=== PATIENT | male | born 1955 | race Caucasian/White ===

== ENCOUNTER 2023-08-29 13:20 | Emergency (ER) | payer OTHER, SELFPAY ==
[2023-08-29 13:56] VITALS: BP 111/76
[2023-08-29 14:36] LABS: % Basophils 0.4 % (0-2); % Eosinophils 1.1 % (0-6); % Immature Granulocytes 0.7 % (0-0.5); % Lymphocytes 8.4 % (20.5-51.1); % Monocytes 9.9 % (1.7-9.3); % Neutrophils 79.5 % (42.2-75.2); Absolute Eosinophils 0.1 10^3/uL (0-0.7); Absolute Immature Granulocytes 0.1 10^3/uL (0-0.05); Absolute Lymphocytes 0.7 10^3/uL (1.2-3.4); Absolute Monocytes 0.8 10^3/uL (0.1-0.6); Absolute Neutrophils 6.4 10^3/uL (1.4-6.5); Hematocrit 45.9 % (39.0-52.0); Hemoglobin 16.4 g/dL (13.0-18.0); Mean Corp Hgb Conc. 35.7 g/dL (33.0-37.0); Mean Corpuscular Hgb 32.5 pg (27.0-31.0); Mean Corpuscular Volume 90.9 fL (80.0-94.0); Mean Platelet Volume 10.4 fL (7.4-10.4); Nucleated Red Blood Cells % 0 % (-); Platelet Count 139 10^3/uL (130-400); Red Blood Cell Count 5.05 10^6/uL (4.70-6.10); Red Cell Dist. Width 12.8 % (11.5-14.5); White Blood Cell Count 8.1 10^3/uL (4.8-10.8)
[2023-08-29 14:48] LABS: Lactic Acid 0.9 mmol/L (0.7-2.0)
[2023-08-29 15:00] LABS: ALT (SGPT) 53 U/L (0-50); AST (SGOT) 36 U/L (17-59); Albumin 4.5 g/dl (3.5-5.0); Alkaline Phosphatase 68 U/L (38-126); Blood Urea Nitrogen 18 mg/dl (9-20); Calcium 8.7 mg/dl (8.4-10.2); Carbon Dioxide 21 mmol/L (22-30); Chloride 105 mmol/L (98-107); Glucose 106 mg/dl (70-99); Potassium 4.1 mmol/L (3.5-5.1); Sodium 134 mmol/L (135-145); Total Bilirubin 1.1 mg/dl (0.2-1.3); eGFR > 60.00
[2023-08-29 15:06] LABS: COVID-19 Antigen Negative (Negative)
[2023-08-29 18:39] LABS: Urine Albumin Negative (Neg - Trace); Urine Bilirubin 1+ (Negative); Urine Character Clear (Clear); Urine Color Yellow; Urine Glucose Negative (Negative); Urine Ketone Negative (Negative); Urine Leukocyte Negative (Negative); Urine Nitrite Negative (Negative); Urine Occult Blood Negative (Negative); Urine Urobilinogen Negative (Neg - 1+)
--- NOTE | 2023-08-29 20:28 | ED.GENMED ---
History of Present Illness
General
Chief Complaint: Cold/Flu/URI Symptoms
Source: patient and spouse
Exam Limitations: none
Time Seen by Provider: 08/29/23 16:45
Nursing documentation reviewed up to this point in time: agreed with
Travel History
Have you had any contact with someone who has COVID-19?: No
Do you have any symptoms of coronavirus? Fever > 100 degrees, chills, cough, shortness of breath, sore throat, loss of taste or smell, muscle aches, or headache?: No
History of Present Illness
History of Present Illness:
68-year-old male presents to the emergency room for evaluation of fever/chills and diarrhea. Onset of symptoms overnight last night roughly around midnight and have been consistent through the day. He reports multiple episodes of watery diarrhea
nonbloody. He says that he was having some fevers with a Tmax of 101.6 �F last night. Also having some chills. He apparently saw a telehealth doctor who recommended he come to the emergency room to be assessed. He has not had any nausea or
vomiting. Denies any abdominal pain. Denies any respiratory symptoms. No other complaints.
Past History
Past History
ED Past Medical History: Arrthythmia and HTN
ED Past Surgical History: Appendectomy
Social History
Living: with family
Employment: Employed
Review of Systems
Review of Systems
All Other Systems: ROS reviewed and negative except as documented in HPI and ROS
Constitutional: Reports fever, fatigue and chills
EENT: Denies sore throat or runny nose
Respiratory: Denies cough or trouble breathing
Cardiac: Denies chest pain or palpitations
ABD/GI: Reports diarrhea; Denies abdominal pain, nausea, vomiting or bloody stools
: Denies frequency, flank pain or dark urine
Musculoskeletal: Denies neck pain or back pain
Neurological: Denies headache, weakness or numbness
Phy Exam
Physical Exam
Physical Exam:
General: Awake, alert, oriented x3; no acute distress
Head: Normocephalic, atraumatic
Eyes: Conjunctiva normal, sclera anicteric
Throat: Airway intact, handling secretions, moist mucous membrane
Neck: Trachea midline
Lungs: Clear to auscultation bilaterally, no wheezing, rales, rhonchi
Heart: Regular rate and rhythm, no murmurs, gallops, or rubs
Abd: Soft, non distended, nontender
Neuro: No gross deficits
Skin: no rash
Extremities: No edema in extremities, warm and well-perfused
Scores
Heart Failure Risk
Heart Failure Risk Score: Not Applicable
Heart Score for Chest Pain Patients
STEMI patient?: Not applicable
Withdrawal Assessment of Alcohol
Withdrawal Assessment Completed?: Not applicable
Course
Orders/Labs/Results
Orders:
Orders
08/29/23 14:18
Complete Blood Count/With Diff Urgent
Comprehensive Metabolic Panel Urgent
Blood Culture Urgent
[facility] Source: Blood/Venous
Specimen Description:
Influenza A+B Rapid Molecular Urgent
[facility] Source: Nasal Swab
Specimen Description:
08/29/23 14:19
COVID-19 Antigen Urgent
Source: Nasal Swab
Lactic Acid Urgent
08/29/23 16:01
CR Chest - 2 Views Urgent
Comment:
Reason For Exam: fever, chills
08/29/23 18:20
Urinalysis Reflex To Culture Urgent
Date Specimen was Collected: 08/29/23
Time Specimen was Collected: 18:17
Abnormal Lab Results
08/29/23 08/29/23
14:18 18:20
MCH 32.5 H pg
(27.0-31.0)
Abs Immat Gran (auto) 0.1 H 10^3/uL
(0-0.05)
Absolute Lymphs (auto) 0.7 L 10^3/uL
(1.2-3.4)
Absolute Monos (auto) 0.8 H 10^3/uL
(0.1-0.6)
Immature Gran % 0.7 H %
(0-0.5)
Neutrophils % 79.5 H %
(42.2-75.2)
Lymphocytes % 8.4 L %
(20.5-51.1)
Monocytes % 9.9 H %
(1.7-9.3)
Sodium 134 L mmol/L
(135-145)
Carbon Dioxide 21 L mmol/L
(22-30)
Glucose 106 H mg/dl
(70-99)
ALT 53 H U/L
(0-50)
Urine Bilirubin 1+ A
(Negative)
08/29/23 14:18
08/29/23 14:18
Vital Signs
Initial and Last Documented VS:
Initial Vital Signs
Temp Pulse Resp BP Pulse Ox
37.1 C 63 18 111/76 98
08/29/23 13:56 08/29/23 13:56 08/29/23 13:56 08/29/23 13:56 08/29/23 13:56
Last Documented Vital Signs
Temp Pulse Resp BP Pulse Ox
37.1 C 63 18 111/76 98
08/29/23 13:56 08/29/23 13:56 08/29/23 13:56 08/29/23 13:56 08/29/23 13:56
MDM/Problems Addressed
Differential Diagnosis Includes:
Gastroenteritis, colitis, viral syndrome/influenza
MDM/Problems Addressed:
68-year-old male presents for evaluation of diarrhea and fever starting last night. Vital signs normal here he took Tylenol prior to arrival. Physical exam as above. Labs sent off in triage including a CBC which showed no significant
abnormalities, CMP which showed marginal nongap metabolic acidosis like related to GI losses. Urinalysis showed no signs of infection, chest x-ray showed no pneumonia. Viral swabs were negative. Suspect likely norovirus or some other GI bug. He
appears quite well, no abdominal pain or tenderness no indication for emergent abdominal imaging at this point in time. Furthermore with nonbloody stools for 12 hours no clear indication for antibiotics. I think he is a reasonable candidate for
discharge with supportive care can follow-up as an outpatient with his primary doctor. He feels very comfortable with this plan. Advised him to drink plenty of fluids including Gatorade or Pedialyte, Pepto-Bismol as needed. Spoke about return
precautions, all questions answered.
*Pulse Oximetry
Patient hypoxic: no
*Critical Care Note
Total Time (30-74mins, 75-104mins- exclusive of procedures): Not Applicable
Data Reviewed
Source: patient and spouse
Prescriptions/Medications Considered But Not Given:
Considered treating with antibiotics such as ciprofloxacin
Further Testing Considered But Not Given:
Considered CT of the abdomen and pelvis
ED Attending Note
-
Portions of this chart may have been created with voice recognition software.� Occasional wrong word or��sound alike� substitutions may have occurred due to the inherent limitations of voice recognition software.
Discharge Plan
Departure
Patient Disposition: Home (Routine Discharge)
Date of Disposition: 08/29/23
Time of Disposition: 18:50
Patient with high blood pressure during this ER visit?: No
Discharge Problem:
Diarrhea
Instructions: Diarrhea, Adult ED
Prescriptions:
No Action
tamsulosin 0.4 MG capsule
0.4 mg PO DAILY
metformin 1,000 MG tablet
1,000 mg PO DAILY
lisinopril 10 MG tablet
10 mg PO
metoprolol succinate 25 MG tablet extended release 24 hr
25 mg PO DAILY
apixaban [Eliquis] 5 MG tablet
5 mg PO BID
Referrals:
Perla Sanchez MD [Family Provider] - Call in 1-3 days for appt
Activity Restrictions/Additional Instructions:
You were seen in the emergency room for diarrhea and fever. You likely have a GI virus. You can take Pepto-Bismol as needed as we discussed. You should take Tylenol as needed for fever. You should make sure that you are drinking plenty of fluids
and try to use Gatorade or Pedialyte as well to ensure that you are getting electrolytes. If your symptoms are not improving after a few days or if you are having abdominal pain or if you are starting to have nausea or vomiting and cannot keep
fluids down you should return immediately to the emergency room. Otherwise you can follow-up with your primary doctor to be rechecked after the ER visit�you can follow-up next week with your primary doctor.
Thank you for visiting the Emergency Department at [facility].
1. Please schedule a follow up appointment as directed. Call first thing tomorrow morning to make an appointment.
2. If indicated, please take your medications as instructed and indicated on discharge paperwork.
3. If any of your symptoms do not improve, or persist, or become more severe within 6-12 hours, please return to the emergency department for further care.
4. Please return to the emergency department if you develop a headache, neck pain/stiffness, fever greater than 100.4F, chest pain, shortness of breath, persistent nausea, vomiting, slurred speech, difficulty walking, numbness/tingling, weakness,
signs of infection or any other symptoms that are worrisome to you.
Please call [phone] if you have any questions.
Interventions
Interventions:
*General Assessment Last Done: 08/29/23 19:13
*Nursing Disposition Last Done: 08/29/23 19:13
ED- Pulmonary Assessment Last Done: 08/29/23 16:00
Discharge Date and Time
Discharge Date/Time: 08/29/23 19:05
== END 2023-08-29 19:05 | disposition home or self-care (01) ==
LOC: EMR 13:20
PROVIDERS: Emergency Medicine; EMERGENCY PHYSICIAN Emergency Medicine; FAMILY PHYSICIAN Family Medicine
DX: R19.7 Diarrhea, unspecified (principal); R50.9 Fever, unspecified; Z11.52 Encounter for screening for COVID-19
CPT/HCPCS: 99284; 71046; 80053; 81003; 83605; 85025; 87040; 87502; 87811